=== PATIENT | male | born 1945 | race African-American/Black ===

== ENCOUNTER 2023-08-31 17:46 | Emergency (ER) | payer OTHER ==
[~2023-08-31] VITALS: Ht 193 cm; Wt 120.0 kg
[2023-08-31 19:17] LABS: Chloride 120 mmol/L (98-107); Potassium 2.8 mmol/L (3.5-5.1); Sodium 147 mmol/L (136-145)
[2023-08-31 19:18] LABS: Anion Gap 8 (5-15); Carbon Dioxide 19 mmol/L (20-30)
[2023-08-31 19:23] LABS: BUN/Creatinine Ratio 26.5 (10.0-20.0); Blood Urea Nitrogen 9 mg/dL (9-23); Glucose 94 mg/dL (74-106)
[2023-08-31 19:49] LABS: Basophils # (auto) 0 10 ^3/uL (0-0.2); Basophils % (auto) 0.4 % (0.0-2.0); Eosinophils # (auto) 0 10 ^3/uL (0-0.8); Eosinophils % (auto) 0.3 % (0.0-7.0); Hematocrit 39.1 % (41.0-53.0); Hemoglobin 12.6 g/dL (13.5-17.5); Lymphocytes # (auto) 0.5 10 ^3/uL (0.4-5.4); Lymphocytes % (auto) 8.8 % (10.0-50.0); Mean Corpuscular Hemoglobin 31.2 pg (28.0-32.0); Mean Corpuscular Hgb Conc. 32.3 g/dL (32.0-36.0); Mean Corpuscular Volume 96.7 fL (80.0-100.0); Monocytes # (auto) 0.4 10 ^3/uL (0-1.3); Monocytes % (auto) 6.6 % (0.0-12.0); Neutrophils # (auto) 5.1 10 ^3/uL (1.6-8.6); Neutrophils % (auto) 83.9 % (37.0-80.0); Red Blood Cells 4.05 10^6/uL (4.5-5.90); Red Cell Distribution Width 13.7 % (11.8-14.3)
[2023-08-31 20:00] VITALS: PULSE 67; RESP 18; O2SAT 99
[2023-08-31] MEDS ORDERED: CALCIUM CHL 100MG/ML 1,000 MG in D5W 5% 100 ML IV ONE (20:00)
[2023-08-31] MEDS: cloNIDine HCL 0.1 MG TAB PO ONE ×2 (20:13→20:21)
[2023-08-31] MEDS ORDERED: CALCIUM GLUC 1,000mg/50ml-NS 50 ML IV ONE (20:30)
[2023-08-31] MEDS ORDERED: POTASSIUM CHL 20MEQ/100ML 100 ML IV ONE (20:30)
[2023-08-31] MEDS ORDERED: POTASSIUM CHL 20 Meq TABLET PO ONE (20:45)
[2023-08-31 23:13] VITALS: BP 161/66; PULSE 68; RESP 13; TEMP 97.8; O2SAT 98
== END 2023-08-31 20:34 ==
LOC: EDBD 17:46 → ER 17:46
DX: I16.0 Hypertensive urgency (principal); E87.6 Hypokalemia; E83.51 Hypocalcemia; R51.9 Headache, unspecified; R07.89 Other chest pain
CPT/HCPCS: 36415; 70450; 71045; 80048; 84484; 85025; 93005; 96365; 99285; J0610; J7060